=== PATIENT | male | born 1955 ===

== ENCOUNTER 2018-11-09 11:38 | Emergency (ER) | payer OTHER ==
[2017-01-12 15:52] VITALS: Wt 88.5 kg
[2018-11-09] MEDS ORDERED: STEMI KIT(*) 1 EA ONE (11:48)
[2018-11-09] MEDS ORDERED: NS(*) 0.9% 1000 ML BAG 1,000 ML IV ONE (11:50)
[2018-11-09] MEDS ORDERED: ASPIRIN 81 MG CHEW PO ONE (11:50)
[2018-11-09] MEDS ORDERED: NITROGLYCERIN 0.4 MG SUBL SL ONE (11:50)
--- NOTE | 2018-11-09 11:52 | EKG ---
[place] [facility] [place] JOSE SAHU : [id number] MR: [id number] V: [id number] EXAM DATE: ORDERING PHYSICIAN: DEMI THAO TECHNOLOGIST: Test Reason : Blood Pressure : / mmHG Vent. Rate : 084 BPM Atrial Rate : 084 BPM P-R Int : 146 ms QRS Dur : 120 ms QT Int : 362 ms P-R-T Axes : 065 054 048 degrees QTc Int : 427 ms Sinus rhythm Probable left atrial enlargement ST elevation anterior leads and depression inferolateral leads Tall T waves through precordial leads These findings are concerning for acute ischemia Abnormal ECG No previous ECGs available Confirmed by SNOW WALL ([id number]) on 11/09/2018 4:17:20 PM Referred By: Confirmed By:SNOW WALL
[2018-11-09] MEDS ORDERED: HEPARIN* SOD/D5W 25000 U/500ML 500 ML IV ONE ×3 (11:54→12:25)
[2018-11-09] MEDS ORDERED: TENECTEPLASE 50 MG KIT IVP ONE (11:55)
[2018-11-09] MEDS ORDERED: HEPARIN (PORC) 5000 UN/ML VIAL IVP ONE (11:55)
[2018-11-09] MEDS ORDERED: ASPI-1471 PO (12:04)
[2018-11-09 12:05] LABS: PLATELET COUNT, AUTOMATED 285 K/uL (150-450)
[2018-11-09] MEDS ORDERED: MORPHINE 4 MG/ML SDV IVP ONE (12:10)
--- NOTE | 2018-11-09 12:16 | EKG ---
FACILITY: [facility] [place] PATIENT NAME: JOSE SAHU : [id number] MR: [id number] V: [id number] EXAM DATE: ORDERING PHYSICIAN: DEMI THAO TECHNOLOGIST: DIONI Mitchell Reason : CP Blood Pressure : / mmHG Vent. Rate : 077 BPM Atrial Rate : 077 BPM P-R Int : 162 ms QRS Dur : 086 ms QT Int : 394 ms P-R-T Axes : 070 049 053 degrees QTc Int : 445 ms Sinus rhythm Poor R wave progression anteriorly ST elevation through precordial leads most prominent laterally ST depression inferior leads ACUTE [place] Abnormal ECG Confirmed by SNOW WALL ([id number]) on 11/09/2018 4:21:07 PM Referred By: MASTER Confirmed By:SNOW WALL
[2018-11-09] MEDS ORDERED: NITROGLYCERIN 5 MG/ML VIAL 50 MG in D5W(*) 250 ML BAG 250 ML IVPB ONE (12:30)
[2018-11-09] MEDS ORDERED: NITROGLYCERN* 50 MG/D5W 250 ML 250 ML ONE (12:33)
--- NOTE | 2018-11-09 13:06 | ER Report ---
History and Physical Time Seen By MD: 11:44 Hx. of Stated Complaint: chest pain HPI/ROS CHIEF COMPLAINT: Chest pain HISTORY OF PRESENT ILLNESS: 63-year-old male patient presents to emergency room with complaint of chest pain. Patient states that he was exercising this morning, walking on treadmill, fairly vigorously. When he stopped he had a sudden onset of chest pain. He states that the chest pain was significant, he did have some shortness of breath. He initially thought that it was some heartburn and did take an antacid. He states there is no improvement in that. He states that the pain seemed to worsen. At that time he decided he should come into the emergency room for further evaluation. Patient denies having any nausea, vomiting. He states that he normally does not take any medications. REVIEW OF SYSTEMS: Constitutional: No fever, no chills. Eyes: No discharge. ENT: No sore throat. Cardiovascular: As noted above Respiratory: As noted above Gastrointestinal: No abdominal pain, no vomiting. Genitourinary: No hematuria. Musculoskeletal: No back pain. Skin: No rashes. Neurological: No headache. Allergies: Coded Allergies: No Known Drug Allergies (Unverified , 11/09/18) Home Meds Reported Medications Aspirin (ASPIR 81) 81 Mg Tablet.dr, 81 MG PO QDAY, TAB 11/09/18 Multivitamin (MULTIVITAMINS) 1 Each Capsule, 1 EACH PO, CAPSULE 01/04/17 [place]-3S/Dha/Epa/Fish Oil (Fish Oil 1,200 mg Softgel) 720-1,200MG Capsule, 1 MG PO DAILY 01/04/17 Calcium Carbonate/Vitamin D3 (CALCIUM + VITAMIN D TABLET) 1 Each Tablet, 1 EACH PO DAILY 01/04/17 Docusate Sodium (COLACE) 100 Mg Capsule, 200 MG PO DAILY, CAPSULE 01/04/17 Lutein/Zeaxanthin (LUTEIN-ZEAXANTHIN 25-5 MG SFGL) 1 Each Capsule, 1 EACH PO DAILY, CAPSULE 01/04/17 Discontinued Reported Medications Oxycodone Hcl (OXYCONTIN) 10 Mg Tab.er.12h, 1-2 TAB PO Q12H for PAIN, TAB 01/14/17 Oxycodone/Acetaminophen (OXYCODONE/ACETAMINOPHEN 5MG/325 MG) 5 Mg/325 Mg Tab, 1- 2 TAB PO Q4-6H for PAIN, #40 01/14/17 Discontinued Scripts Magnesium Hydroxide (MILK OF MAGNESIA) 400 Mg/5 Ml Oral.susp, 30 ML PO Q8H PRN for CONSTIPATION for 14 Days, Prov:CLARE GARCIA MD 01/13/17 Polyethylene Glycol 3350 (POLYETHYLENE GLYCOL 3350) 17 Gm Powd.pack, 17 GM PO QDAY PRN for constipation prevention for 14 Days, Take while on narcotic medication Prov:CLARE GARCIA MD 01/13/17 Aspirin (ASPIRIN EC) 325 Mg Tablet.dr, 325 MG PO QDAY for 30 Days, Take for 30 days after surgery for blood clot prevention and then resume aspirin 81mg a day. Prov:CLARE GARCIA MD 01/13/17 Past Medical/Surgical History Patient denies any pertinent medical history. Patient has a past surgical history of left knee surgery, right shoulder surgery. Reviewed Nurses Notes: Yes Hx Smoking: Yes Smoking Status: Former Smoker, Light Tobacco Smoker Exposure to Second Hand Smoke?: No Hx Substance Use Disorder: No Hx Alcohol Use: No Constitutional Vital Sign - Last 24 Hours 11/09/18 11/09/18 11/09/18 11/09/18 11:38 11:40 11:47 11:48 Pulse 99 91 Resp 28 28 B/P (MAP) 145/101 (116) 145/102 (116) Pulse Ox 100 100 O2 Delivery Room Air Room Air 11/09/18 11/09/18 11/09/18 11/09/18 11:49 11:50 11:53 11:58 Pulse 87 82 Resp 22 21 B/P (MAP) 145/102 146/101 (116) 144/99 (114) Pulse Ox 100 96 O2 Delivery Room Air Nasal Cannula O2 Flow Rate 2 11/09/18 11/09/18 11/09/18 11/09/18 11:59 12:01 12:08 12:10 Pulse 77 Resp 22 B/P (MAP) 140/97 (111) 144/99 (114) Pulse Ox 98 O2 Delivery Nasal Cannula O2 Flow Rate 2.0 2 11/09/18 11/09/18 11/09/18 11/09/18 12:13 12:18 12:20 12:28 Pulse 78 79 73 Resp 25 25 20 B/P (MAP) 137/95 (109) Pulse Ox 98 97 97 O2 Delivery Nasal Cannula Nasal Cannula Nasal Cannula O2 Flow Rate 2 2 2 11/09/18 11/09/18 11/09/18 11/09/18 12:30 12:35 12:40 12:45 Pulse 66 65 Resp 24 25 B/P (MAP) 136/93 (107) 130/90 (103) Pulse Ox 98 99 O2 Delivery Nasal Cannula Nasal Cannula O2 Flow Rate 2 2 11/09/18 11/09/18 11/09/18 11/09/18 12:50 12:55 13:00 13:05 Pulse 67 68 Resp 28 26 B/P (MAP) 126/87 (100) 125/89 (101) Pulse Ox 99 99 O2 Delivery Nasal Cannula Nasal Cannula O2 Flow Rate 2 2 11/09/18 11/09/18 13:15 13:37 Temp 97.5 Pulse 71 Resp 12 B/P (MAP) 124/85 (98) Pulse Ox 98 O2 Delivery Nasal Cannula O2 Flow Rate 2 Physical Exam General Appearance: The patient is alert, has no immediate need for airway protection and no signs of toxicity. Eyes: Pupils equal and round no pallor or injection. ENT, Mouth: Mucous membranes are moist. Respiratory: There are no retractions, lungs are clear to auscultation. Cardiovascular: Regular rate and rhythm. Gastrointestinal: Abdomen is soft and non tender, no masses, bowel sounds normal. Neurological: Alert and oriented 4 Skin: Warm and dry, no rashes. Musculoskeletal: Neck is supple non tender. Extremities are nontender, nonswollen and have full range of motion. DIFFERENTIAL DIAGNOSIS: After history and physical exam differential diagnosis was considered for chest pain including but not limited to myocardial ischemia, pericarditis pulmonary embolus, chest wall pain, pleural inflammation and pulmonary infectious causes. Medical Decision Making Data Points Result Diagram: 11/09/18 1146 11/09/18 1146 Laboratory Hematology Test 11/09/18 11:46 Red Blood Count 5.37 M/uL (4.00-5.60) Mean Corpuscular Volume 97.1 fL (80.0-96.0) Mean Corpuscular Hemoglobin 33.8 pg (26.0-33.0) Mean Corpuscular Hemoglobin Concent 34.8 g/dL (32.0-36.0) Red Cell Distribution Width 12.7 % (11.5-14.5) Mean Platelet Volume 9.4 fL (7.2-11.1) Neutrophils (%) (Auto) 56.8 % (39.4-72.5) Lymphocytes (%) (Auto) 26.6 % (17.6-49.6) Monocytes (%) (Auto) 12.1 % (4.1-12.4) Eosinophils (%) (Auto) 1.3 % (0.4-6.7) Basophils (%) (Auto) 3.2 % (0.3-1.4) Nucleated RBC Relative Count (auto) 0.0 /100WBC Neutrophils # (Auto) 4.2 K/uL (2.0-7.4) Lymphocytes # (Auto) 2.0 K/uL (1.3-3.6) Monocytes # (Auto) 0.9 K/uL (0.3-1.0) Eosinophils # (Auto) 0.1 K/uL (0.0-0.5) Basophils # (Auto) 0.2 K/uL (0.0-0.1) Nucleated RBC Absolute Count (auto) 0.00 K/uL Peripheral Blood Smear Yes Y/N Prothrombin Time 13.0 seconds (12.0-14.4) Prothromb Time International Ratio 0.98 Activated Partial Thromboplast Time 28 seconds (23-35) Sodium Level 139 mmol/L (137-145) Potassium Level 3.4 mmol/L (3.5-5.0) Chloride Level 104 mmol/L (98-107) Carbon Dioxide Level 23 mmol/L (22-30) Blood Urea Nitrogen 16 mg/dl (9-21) Creatinine 1.30 mg/dl (0.66-1.25) Glomerular Filtration Rate Calc 55.4 Random Glucose 133 mg/dl (75-110) Calcium Level 10.0 mg/dl (8.4-10.2) Total Bilirubin 1.0 mg/dl (0.2-1.3) Aspartate Amino Transf (AST/SGOT) 37 U/L (0-35) Alanine Aminotransferase (ALT/SGPT) 21 U/L (0-56) Alkaline Phosphatase 90 U/L (0-126) Troponin I < 0.012 ng/ml Total Protein 8.4 g/dl (6.3-8.2) Albumin 4.9 g/dl (3.5-5.0) Chemistry Test 11/09/18 11:46 White Blood Count 7.4 k/uL (4.5-11.0) Red Blood Count 5.37 M/uL (4.00-5.60) Hemoglobin 18.2 g/dL (14.0-18.0) Hematocrit 52.1 % (42.0-52.0) Mean Corpuscular Volume 97.1 fL (80.0-96.0) Mean Corpuscular Hemoglobin 33.8 pg (26.0-33.0) Mean Corpuscular Hemoglobin Concent 34.8 g/dL (32.0-36.0) Red Cell Distribution Width 12.7 % (11.5-14.5) Platelet Count 285 K/uL (150-450) Mean Platelet Volume 9.4 fL (7.2-11.1) Neutrophils (%) (Auto) 56.8 % (39.4-72.5) Lymphocytes (%) (Auto) 26.6 % (17.6-49.6) Monocytes (%) (Auto) 12.1 % (4.1-12.4) Eosinophils (%) (Auto) 1.3 % (0.4-6.7) Basophils (%) (Auto) 3.2 % (0.3-1.4) Nucleated RBC Relative Count (auto) 0.0 /100WBC Neutrophils # (Auto) 4.2 K/uL (2.0-7.4) Lymphocytes # (Auto) 2.0 K/uL (1.3-3.6) Monocytes # (Auto) 0.9 K/uL (0.3-1.0) Eosinophils # (Auto) 0.1 K/uL (0.0-0.5) Basophils # (Auto) 0.2 K/uL (0.0-0.1) Nucleated RBC Absolute Count (auto) 0.00 K/uL Peripheral Blood Smear Yes Y/N Prothrombin Time 13.0 seconds (12.0-14.4) Prothromb Time International Ratio 0.98 Activated Partial Thromboplast Time 28 seconds (23-35) Glomerular Filtration Rate Calc 55.4 Calcium Level 10.0 mg/dl (8.4-10.2) Total Bilirubin 1.0 mg/dl (0.2-1.3) Aspartate Amino Transf (AST/SGOT) 37 U/L (0-35) Alanine Aminotransferase (ALT/SGPT) 21 U/L (0-56) Alkaline Phosphatase 90 U/L (0-126) Troponin I < 0.012 ng/ml Total Protein 8.4 g/dl (6.3-8.2) Albumin 4.9 g/dl (3.5-5.0) Coagulation Test 11/09/18 11:46 Prothrombin Time 13.0 seconds Prothromb Time International Ratio 0.98 Activated Partial Thromboplast Time 28 seconds EKG/Imaging EKG Interpretation 12 lead EKG done at 1136: Rhythm: normal sinus rhythm [place]: normal QRS: normal ST segments: ST depression in lead II, lead III, ST elevation in V1, V2, V3, V4, V5, V6 12 lead EKG done at 1205: Rhythm: normal sinus rhythm [place]: normal QRS: normal ST segments: ST elevation in lead V4, V5, V6, ST depression in lead II, lead III 12 lead EKG done at 1229: Rhythm: Wide QRS with fusion complexes [place]: normal QRS: Wide, measuring [address] segments: ST elevation in lead I, aVL, V1, V2, V3, V4, V5, V6. ST elevation in. ST depression in lead II, lead III and aVF 12 lead EKG done at 1254: Rhythm: normal sinus rhythm [place]: normal QRS: normal ST segments: normal Imaging Portable chest, one view. HISTORY: Chest pain. COMPARISON: None currently available. 2 images were obtained. An EKG lead projects on the lower chest. The heart and mediastinum are unremarkable. Pulmonary vessels are unremarkable. The lungs are clear. The pleural surfaces are unremarkable. No pneumothorax. A metal BB projects on the base of the left neck. No acute bony abnormalities. IMPRESSION: No evidence of acute cardiopulmonary disease. Report Dictated By: Leonel Jesus MD at 11/09/2018 1:36 PM Report E-Signed By: Leonel Jesus MD at 11/09/2018 1:38 PM ED Course/Re-evaluation ED Course Patient was admitted and examined, history and physical were obtained. Differential diagnoses were considered. On examination lungs are clear, heart is regular, abdomen soft nontender. Patient was complaining of chest pain and was not having any reproducible pain. An EKG was done which showed ST elevation in V1, V2, V3, V4, V5, V6. He did have some ST depression in lead II and III. labs were obtained, patient was given 324 of aspirin. I did contact and speak with Dr. Wheeler, side panel hanger at [facility]. His initial recommendation based on my interpretation of EKG was to go ahead and give TMJ as well as heparin. That was done. I was able to get him copies of EKG and he was unsure as to what to make of it. He recommended getting a repeat EKG. Repeat EKG did show ST elevation, he refused that and was in agreement with that. We discussed labs, which initially were unremarkable except patient did have an elevated creatinine of 1.3, blood glucose of 133. Patient was restarted on heparin. That 0 the patient had worsening chest pain. He was started on a nitroglycerin drip at that time. Patient got a repeat EKG. They did show diffuse ST elevation in lead I, aVL, V1, V2, V3, V4, V5, V6. He did have ST depression in lead II and III. With the nitro drip patient had improvement in his pain. EKG repeated prior to transfer to the helicopter showed a normal sinus rhythm with no ST elevation. I did send that to Dr. Wheeler, reviewed that. Patient will be transferred via helicopter to [facility]. Decision to Disposition Date: Nov 09, 2018 Decision to Disposition Time: 12:00 Critical Care Time I spent a total of 30 minutes of critical care time in obtaining history, performing a physical exam, bedside monitoring of interventions, collecting and interpreting tests and discussion with consultants but not including time spent performing procedures. Depart Departure Latest Vital Signs Vital Signs Date Time Temp Pulse Resp B/P (MAP) Pulse Ox O2 Delivery O2 Flow Rate FiO2 11/09/18 13:37 97.5 11/09/18 13:15 71 12 124/85 (98) 98 Nasal Cannula 2 Impression: Primary Impression: STEMI (ST elevation myocardial infarction) Condition: Condition Unchanged Disposition: XFER TO ACUTE CARE HOSPITAL Problem Qualifiers Primary Impression: STEMI (ST elevation myocardial infarction) Involved coronary artery: unspecified coronary artery Qualified Codes: I21.3 - ST elevation (STEMI) myocardial infarction of unspecified site DEMI THAO Nov 09, 2018 13:06
[2018-11-09 13:15] VITALS: BP 124/85
[2018-11-09 13:15] LABS: INR 0.98
--- NOTE | 2018-11-09 13:36 | EKG ---
FACILITY: [facility] - [place] PATIENT NAME: JOSE SAHU : [id number] MR: [id number] V: [id number] EXAM DATE: ORDERING PHYSICIAN: DEMI THAO TECHNOLOGIST: Test Reason : Blood Pressure : / mmHG Vent. Rate : 075 BPM Atrial Rate : 075 BPM P-R Int : 088 ms QRS Dur : 170 ms QT Int : 480 ms P-R-T Axes : 000 096 -11 degrees QTc Int : 536 ms Suspect junctional or accelerated idioventricular rhythm Dramatic ST elevation through precordial leads and leads I and AVL ST depression in the inferior leads Acute [place] Abnormal ECG Confirmed by SNOW WALL ([id number]) on 11/09/2018 4:24:58 PM Referred By: Confirmed By:SNOW WALL
--- NOTE | 2018-11-09 13:36 | EKG ---
FACILITY: [facility] - [place] PATIENT NAME: JOSE SAHU : [id number] MR: [id number] V: [id number] EXAM DATE: ORDERING PHYSICIAN: DEMI THAO TECHNOLOGIST: DIONI Mitchell Reason : REPEAT CP Blood Pressure : / mmHG Vent. Rate : 069 BPM Atrial Rate : 069 BPM P-R Int : 166 ms QRS Dur : 094 ms QT Int : 432 ms P-R-T Axes : 082 067 064 degrees QTc Int : 462 ms Sinus rhythm Probable left atrial enlargement Slight ST elevation through precordial leads Much improved compared to previous EKG Artifact in inferior leads Confirmed by SNOW WALL ([id number]) on 11/09/2018 4:27:20 PM Referred By: Confirmed By:SNOW WALL
--- NOTE | 2018-11-09 13:42 | RADIOLOGY IMAGING REPORT ---
[place] [facility] [place]: David Farrell : 1955 MR: [id number] V: [id number] EXAM DATE: ORDERING PHYSICIAN: DEMI THAO TECHNOLOGIST: Location: [facility] Patient: David Farrell : 1955 Visit/Account:[id number] Date of Sevice: 11/09/2018 Portable chest, one view. HISTORY: Chest pain. COMPARISON: None currently available. 2 images were obtained. An EKG lead projects on the lower chest. The heart and mediastinum are unrema rkable. Pulmonary vessels are unremarkable. The lungs are clear. The pleural surfaces are unremarka ble. No pneumothorax. A metal BB projects on the base of the left neck. No acute bony abnormalities. IMPRESSION: No evidence of acute cardiopulmonary disease. Report Dictated By: Leonel Jesus MD at 11/09/2018 1:36 PM Report E-Signed By: Leonel Jesus MD at 11/09/2018 1:38 PM WSN:[id number]
== END 2018-11-09 13:50 | disposition short-term general hospital (02) ==
LOC: ER 11:41
DX: I21.3 ST elevation (STEMI) myocardial infarction of unspecified site (principal)
CPT/HCPCS: 71045; 84484; 85025; 85610; 85730; 93005; 96361; 96365; 96375; 99291; J1644; J2270; J3101; J3490; J7030; J7060; 82040; 82247; 82310; 82374; 82435; 82565; 82947; 84075; 84132; 84155; 84295; 84450; 84460; 84520

== ENCOUNTER → 2018-11-09 | Outpatient (REF) ==
[2017-01-12 15:52] VITALS: BMI 34.7
[~2018-11-09] MED LIST: ASPI-1471 PO; ASPI-764 PO; CALC-852 PO; DOCU-416 PO; LUTE1CAP PO; MOM PO; MULT1CAP59 PO; OMEG1CAP85 PO; OXYC-823 PO; PER PO; POLY17PO11 PO
== END ==
LOC: AMB 12:55
PROVIDERS: ATTEND Nurse Practitioner
DX: I21.3 ST elevation (STEMI) myocardial infarction of unspecified site (principal)

== ENCOUNTER → 2018-11-21 | Outpatient (CLI) | payer OTHER ==
[2017-01-12 15:52] VITALS: BMI 34.7
[2018-11-21 10:23] LABS: INR 1.06
== END ==
LOC: LAB 10:01
PROVIDERS: ATTEND Physician Assistant
DX: I25.10 Atherosclerotic heart disease of native coronary artery without angina pectoris (principal)
CPT/HCPCS: 36415; 82310; 82374; 82435; 82565; 82947; 84132; 84295; 84520; 85027; 85610

== ENCOUNTER → 2018-12-12 | Outpatient (CLI) | payer OTHER ==
[2017-01-12 15:52] VITALS: BMI 34.7
--- NOTE | 2018-12-12 12:35 | RADIOLOGY IMAGING REPORT ---
FACILITY: [facility] - [place] PATIENT NAME: David Farrell : 1955 MR: [id number] V: [id number] EXAM DATE: ORDERING PHYSICIAN: TAIWO DEGROOT TECHNOLOGIST: Location: [facility] [place] Patient: David Farrell : 1955 Visit/Account:[id number] Date of Sevice: 12/12/[address] scan without contrast COMPARISONS: None ADDITIONAL PERTINENT HISTORY: Blurred vision after recent heart attack TECHNIQUE: Multiple axial images were obtained from the skull base to the vertex without IV contrast . One of the following dose optimization techniques was utilized in the performance of this exam: Aut omated exposure control; adjustment of the mA and/or kV according to the patient's size; or use of an iterative reconstruction technique. Specific details can be referenced in the facility's radiology CT exam operational policy. FINDINGS: Midline shift: Negative Ventricles: Negative Brain parenchyma: Negative Extra-axial spaces: Negative Intracranial vasculature: Cavernous internal carotid artery calcifications. Otherwise negative Osseous structures: Negative Paranasal sinuses and mastoid air cells: Negative Surrounding soft tissues and orbits: Negative IMPRESSION: 1. Mild age related changes as described above. 2. No evidence of acute intracranial pathology. Report Dictated By: Abdon Young MD at 12/12/2018 12:30 PM Report E-Signed By: Abdon Young MD at 12/12/2018 12:32 PM WSN:[id number]
--- NOTE | 2018-12-12 15:24 | RADIOLOGY IMAGING REPORT ---
FACILITY: [facility] - [place] PATIENT NAME: David Farrell : 1955 MR: [id number] V: [id number] EXAM DATE: ORDERING PHYSICIAN: TAIWO DEGROOT TECHNOLOGIST: Location: [facility] Patient: David Farrell : 1955 Visit/Account:[id number] Date of Sevice: 12/12/2018 Carotid ultrasound with duplex Doppler evaluation HISTORY: Decreased vision. COMPARISON: None. TECHNIQUE: Real-time grayscale, color flow and Doppler sonography of the cervical carotid and vertebr al arteries is performed. Stenosis % is determined from velocity criteria extrapolated from diameter data as defined by the Society of Radiologists in Ultrasound Consensus Conference Radiology 2003; 229 ;340-346. FINDINGS: Right carotid system: Plaque: None. Waveforms: Normal. Vertebral arteries: Antegrade flow. Right Doppler indices (Peak systolic velocities are in centimeters/second): CCA proximal: 118 CCA mid: 102 CCA distal: 100 Bulb: 84 ICA proximal: 92 ICA mid: 63 ICA distal: 55 ECA: 93 Vertebral: 28 ICA/CCA ratio: 0.9 Left carotid system: Plaque: None. Waveforms: Normal. Vertebral arteries: Antegrade flow. Left Doppler indices (Peak systolic velocities are in centimeters/second): CCA proximal: 92 CCA mid: 101 CCA distal: 94 Bulb: 60 ICA proximal: 79 ICA mid: 55 ICA distal: 60 ECA: 83 Vertebral: 35 ICA/CCA ratio: 0.78 IMPRESSION: Normal carotid ultrasound. Report Dictated By: Sal Wood MD at 12/12/2018 3:16 PM Report E-Signed By: Sal Wood MD at 12/12/2018 3:21 PM WSN:[id number]
== END ==
LOC: CT 00:50
PROVIDERS: ATTEND Internal Medicine Cardiovascular Disease
DX: I65.23 Occlusion and stenosis of bilateral carotid arteries (principal)
CPT/HCPCS: 70450; 93880

== ENCOUNTER 2019-01-29 09:00 | Outpatient (RCR) | payer MEDICARE, OTHER ==
[2017-01-12 15:52] VITALS: BMI 34.7
[2018-12-11 16:20] VITALS: BP 106/80
[2018-12-11 16:22] VITALS: BP 112/80
--- NOTE | 2018-12-11 17:10 | CARDIAC REHAB PLAN OF CARE ---
Physician: Edward Alvarez MD Patient is being seen: WilsonGriffin hernandezlucina FLORES Medical Diagnosis: STEMI; STENT x 2; CHF Date of Onset: 11/09/18 Date of Initial Evaluation: 12/11/18 INTERVENTIONS: Due Date: 01/11/19 Patient Assessment: Patient is a 63yr old male who comes to cardiac rehab following a STEMI on 11/09/18 followed by STENT x 2 (LAD & RCA) and being diagnosed with CHF (LVEF 35-40%). He has an unremarkable health history with borderline high cholesterol and is classified as overweight (BMI 26). Patient has had reconstructive surgery on both R shoulder and R knee (replacement). He favors his right leg as he walks, causing an off-center gait pattern. Prior to his STEMI he was moderately active and ate a traditional [place] diet. Post STEMI he has altered his diet to target low sodium foods and is motivated to start other dietary changes and become more active again. Exercise Assessment: During his 6 Minute Walk Test, the patient walked a total of 1500ft for an average speed of 2.8mph. While exercising, the patients HR ranged from 100-118bpm with SPO2 from 87-96%. The patient is a lazy breather when exercising and needs to be reminded to breath deeper in order to stay properly saturated. He experienced a normal hemodynamic response at these HR with blood pressure increasing to 150/80mmHg. The patient denied SOB and angina while exercising, and did not report any orthopedic discomfort. Exercise Plan: It has been agreed upon by the CR staff and the patient that he is to attend CR once per week. He lives out of town and plans to drive in to make rehab weather depending. Each week we will monitor the patient and his vitals at the current exercise target ranges and determine the higher intensity range to set for the next week. On his off day the patient will exercise at home at his new exercise prescription target and record what he does. Goals: Goals will be to monitor the patients safety at increasing intensities to ensure safety and set limits to his exercise targets. We hope to educate the patient and build confidence in his ability to monitor his exercise intensity at home. Exercise Prescription: Mode: Upright Bike, Treadmill Frequency: 1 day/week at rehab (W) and at least 2-3 days at home Duration: Patient will begin with 15 minute intervals and progress as he feels comfortable. We hope to do at least 30 minutes continuously with at least 150 minutes being achieved/week. Intensity: The patients first THR zone is 100-120bpm with an RPE between 3-4 Education: The patient will learn how to monitor his own intensity by becoming familiar with the RPE scale and how to properly use his newly acquired Pulse Oximeter. Exercise Reassessment (Date: ): Exercise Discharge/Follow-Up (Date: ): Nutrition Assessment: Prior to his STEMI, the patient and his report eating a traditional [place]e diet and not really monitoring or being aware of their macronutrient intake. Following his STEMI, they have begun to implement a low cholesterol, low sodium diet. The patient reports recently losing 35lbs and would like to lose another 10-15lbs. Nutrition Plan: Goals: Over the course of his time in CR, our goal will be to educate the patient and his on how to properly assess macronutrient intake, monitor sodium intake, and the components of a well-balanced diet (lean protein, fruits/vegetables, whole grains, healthy fats). Goals will be to establish which small changes are achievable and maintainable in the patients current diet. Intervention: Intervention will include education and verbal discussion with the patient on how to read nutrition labels and how to make small changes to make their current diet healthier. Education: Education will focus on lean protein, fruits/vegetables, whole grains, and healthy fats. Nutrition Reassessment (Date: ): Nutrition Discharge/Follow-Up (Date: ): Psychosocial Assessment: Patient scored low (0/21) for both anxiety and depression on his Hospital Anxiety and Depression Scale. He has a strong support system at home with his (who attended his evaluation with him). He appears to be well engaged in conversation and has a strong interest in doing CR and learning how to be safe following his STEMI. He is highly motivated and has used his recent cardiac event to fuel himself in a positive direction towards increased QoL and independence. Psychosocial Plan: Goals: Our goals will be to help facilitate his learning in a safe exercise environment and help him o learn how to transfer the information he learns here into at home application. Intervention: Intervention will include detailed follow-up while the patient attends CR and goal setting that he can take home to help himself stay motivated over the next week. Education: Education will focus on ability self-monitoring for symptoms as well as exercise intensity. 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 Psychosocial Reassessment (Date: ): Psychosocial Discharge/Follow-Up (Date: ): ALEKS
[2018-12-16 13:12] VITALS: BP 132/86
[2018-12-16 13:13] VITALS: BP 118/78
[2018-12-23 19:42] VITALS: BP 108/68
[2018-12-23 19:43] VITALS: BP 104/74
[2018-12-30 13:07] VITALS: BP 106/70
[2018-12-30 13:08] VITALS: BP 110/76
[2019-01-08 17:39] VITALS: BP_SYST 106; BP_DIAS 70; BP_DIAS 78
[2019-01-08 17:42] VITALS: BP_SYST 105; BP_SYST 110; BP_DIAS 70; BP_DIAS 76
[2019-01-17 17:21] VITALS: BP 112/78
[2019-01-17 17:22] VITALS: BP 108/64
--- NOTE | 2019-01-29 13:31 | CARDIAC REHAB PLAN OF CARE ---
Physician: Edward Alvarez MD Patient is being seen: Ana Laura Wilson MS Medical Diagnosis: sTEMI; STENT x 2; CHF Date of Onset: 11/09/18 Date of Initial Evaluation: 12/11/18 INTERVENTIONS: Date: 03/01/19 Exercise Discharge/Follow-Up (Date: 01/29/19): The patient completed a total of 7/36 visits and is discharged based off the discretion of the CR staff. During the past 1.5 months, the patient attended CR approximately 1 day/week and would bring in his records from the exercise he did at home over the previous week. At the point in the program, the patient has demonstrated great aptitude in monitoring his own BP, HR, and SPO2 during exercise as well as his signs/symptoms. During his exercise CR, the patients ECG demonstrated normal sinus rhythm followed by sinus tachycardia during exercise with no signs of arrhythmia or P, QRS, or ST changes. Due to his relative cardiovascular stability and inability to attend CR regularly, we agree as a CR to discharge him at this time with the knowledge that he can return to CR at any point as well as contact us with any questions or concerns. 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 Nutrition Discharge/Follow-Up (Date: 01/29/19): The patient and his report trying to make small dietary changes, but that the changes have been difficult for them to adhere to. This program, they admit, has helped them focus and be attentive to what they are consuming on a regular basis. Prior to this program they did not think about the foods they ate and now they recognize healthy and unhealthy foods, making sure their servings sizes are appropriate, and are aware of getting a balanced diet. The patient is discharged from the CR program with provided nutritional information and resources. Psychosocial Discharge/Follow-Up (Date: 01/29/19): Patient came to CR very anxious and apprehensive about his physical capability following his cardiac eventwhich is normal of newly admitted patients. It was our goal to help build his confidence and trust in his safety during exercise, such that when he left CR he would feel safe and have the knowledge to assess his signs/symptoms while exercises to do the things he loves to do and perform his daily activities. Now, he reports he does feel like he knows well enough and understands the cardiovascular concepts to make appropriate assessments. He also trusts his heart and his body now that he does not believe he will just have another heart attack going for a leisurely walk. We believe as a CR staff that he has gained the knowledge and confidence to leave the program and proceed on his own with physical activity, knowing he can always contact us with questions and concerns. ALEKS
== END 2019-01-29 18:00 | disposition home or self-care (01) ==
LOC: PT 09:00 → CARD 18:00
PROVIDERS: ATTEND Internal Medicine Cardiovascular Disease
DX: I25.2 Old myocardial infarction (principal); I25.10 Atherosclerotic heart disease of native coronary artery without angina pectoris; I50.9 Heart failure, unspecified; M17.11 Unilateral primary osteoarthritis, right knee; M19.011 Primary osteoarthritis, right shoulder; Z98.890 Other specified postprocedural states; Z95.5 Presence of coronary angioplasty implant and graft; Z87.891 Personal history of nicotine dependence; Z96.651 Presence of right artificial knee joint
CPT/HCPCS: 93798

== ENCOUNTER → 2019-02-17 | Outpatient (CLI) | payer MEDICARE ==
[2017-01-12 15:52] VITALS: BMI 34.7
== END ==
LOC: US 00:34
PROVIDERS: ATTEND Internal Medicine Cardiovascular Disease
DX: I51.7 Cardiomegaly (principal)
CPT/HCPCS: 93306

== ENCOUNTER → 2019-02-26 | Outpatient (CLI) | payer MEDICARE ==
[2017-01-12 15:52] VITALS: BMI 34.7
== END ==
LOC: LAB 10:36
PROVIDERS: ATTEND Internal Medicine Cardiovascular Disease
DX: I25.10 Atherosclerotic heart disease of native coronary artery without angina pectoris (principal)
CPT/HCPCS: 36415; 82465; 83718; 84478